=== PATIENT | female | born 1985 | race Caucasian/White ===

== ENCOUNTER 2025-03-04 07:33 | Outpatient (REF) | payer OTHER, SELFPAY ==
--- OUTSIDE RECORDS SUMMARY | 2025-03-04 07:35 | XMS_ITS ---
Author Name [facility] Organization Unknown Problems Problem Status Onset Date Problem Type Date of Resolution Source Closed traumatic dislocation acromioclavicular joint active 2023-07-07 ProblemAct ENS_AONECT Knee pain, unspecified chronicity, unspecified laterality active [facility]osis[facility] Encounters Encounter Type Encounter Reason Primary Diagnosis Location Date Ambulatory [facility] 10/28/2024 Ambulatory [place] [facility] 02/05/2024 Ambulatory Pain in unspecified knee Pain in unspecified knee [place] [facility] 02/05/2024 Ambulatory [facility] 07/07/2023 Ambulatory [facility] 07/07/2023 Ambulatory [facility] 07/07/2023 Ambulatory [facility] 07/07/2023 Ambulatory [facility] 07/07/2023 Ambulatory [facility] 10/05/2022 Ambulatory [facility] 03/31/2022 Emergency Sprain of unspecified site of unspecified knee, initial encounter [place] [employer] 12/11/2021 Care Team Organization Name Specialty Phone Email Start Date End Da te [place] [facility] 03/31/2022 10/16/2024 [place] [facility] 12/11/2021 12/11/2021
--- OUTSIDE RECORDS SUMMARY | 2025-03-04 07:35 | XMS_ITS | Encounter Summary ---
Author Organization [facility] Address [address] [place] [address] Care Team Providers Care Lead C Developer Name Role Phone Unknown Primary Care Provider [phone] Encounter Details Date Type Department Care Team (Late st Contact Info) Description 03/11/2022 Erroneous Encounter [facility] CON[facility] DEPT [address] [place] [address] Provider, MD Kunal Social History Tobacco Use Types Packs/Day Years Used Date Smoking Tobacco: Never Smokeless Tobacco: Never Comments Unknown Sex and Gender Information Value Date Recorded Sex Assigned at Not on file Legal Sex Female 3:25 PM EDT Gender Identity Not on file Sexual Orientation Not on file documented as of this encounter Plan of Treatment Not on file documented as of this encounter Visit Diagnoses Not on filedocumented in this encounter Care Teams Lead C Developer Relationship Specialty Start Date End Date Unknown Unknow Provider Address PCP - General 12/30/18 documented as of this encounter
== END 2025-03-04 07:34 | disposition home or self-care (01) ==
LOC: HO.HOSX 07:33
PROVIDERS: Visit Provider Orthopaedic Surgery
DX: Z13.89 Encounter for screening for other disorder (principal)

== ENCOUNTER 2025-03-26 08:53 | Outpatient (REF) | payer OTHER, SELFPAY ==
--- NOTE | ~2025-03-26 | XR_ITS ---
EXAMINATION: XR KNEE, RIGHT CLINICAL INFORMATION: M25.561 - Pain in right knee COMPARISON: None available. TECHNIQUE: Three views of the right knee. FINDINGS: There has been prior ACL repair. Hardware intact and well seated. No fracture, dislocation, or suspicious bone lesion. There is normal alignment. Mild to moderate degenerative arthrosis in the medial compartment. Mild changes in the patellofemoral compartment. Spurring of the lateral compartment. Mild spurring of the tibial spines. There is a small suprapatellar joint effusion. No discrete soft tissue abnormality. XR/XR knee RT 3V IMPRESSION: 1. No acute bony abnormalities of the right knee. 2. Prior ACL repair. 3. Moderate osteoarthrosis in the medial compartment and milder changes in the patellofemoral compartment. 4. Small joint effusion. Electronically signed by: Angel Rebollar MD 03/26/2025 11:07 AM EDT
--- OUTSIDE RECORDS SUMMARY | 2025-03-27 09:41 | XMS_ITS | Encounter Summary ---
Author Organization [facility] Address [address] [place] [address] Care Team Providers Care Farm Agent Name Role Phone Unknown Primary Care Provider [phone] Encounter Details Date Type Department Care Team (Late st Contact Info) Description 05/25/2020 Lab Requisition [facility] Emergency Testing Center [address] [place] [phone] Beltran Garcia PA-C [address] [place] [address] Encounter for laboratory testing for COVID-19 virus [...] (COVID-19), Qual (05/25/2020 10:59 AM EDT) Pathologist [facility] SARS CoV 2 RNA, Qual NOT DETECTED NOT DETECTED 05/27/2020 5:[address] [facility] Comment: A Not Detected (negative) test result [...] providers and patients using the following websites: https://www.Tiempy.com/home/Covid-19/HCP/QuestLDTP/ fact-sheet https://www.Tiempy.Matrix [employer] Management/home/Covid-19/Patients/QuestLDTP/ fact-sheet.html This test has been authorized by the FDA under an Emergency Use Authorization (EUA) for use by authorized laboratories. Due to the current public health emergency, [facility] is receiving a high volume of samples [...] about COVID-19 can be found at the [facility] website: www.LocalEats.[employer]/Covid19. Microbiology Nasopharyngeal swab / Unknown 05/25/2020 10:59 AM EDT 05/25/2020 11:[address] [facility] - 05/27/2020 5:00 AM EDT Performing Organization Information: Site ID: [id number] Name: [email or web address] Address: [address] [place] [address],[place] [address] Director: MORENA OLSON MD [facility] License [facility] [id number] Beltran Garcia PA-C BODY FLUIDS AND STOOLS OR DERABLES Final Result [facility] documented in this encounter Visit Diagnoses Diagnosis Encounter for laboratory testing for COVID-19 virus documented in this encounter Care Teams Farm Agent Relationship Specialty Start Date End Date Unknown Unknow Provider Address PCP - General 12/30/18 documented as of this encounter
--- OUTSIDE RECORDS SUMMARY | 2025-03-27 09:41 | XMS_ITS | Encounter Summary ---
Author Organization [facility] Address [address] [place] [address] Care Team Providers Care Teacher Adventure Education Name Role Phone Unknown Primary Care Provider [phone] Encounter Details Date Type Department Care Team (Late st Contact Info) Description 04/14/2020 Lab Requisition [place] COVID-19 Testing Trailer [address] [place] [address] Beltran Garcia PA-C [address] [place] [address] Encounter for laboratory testing for COVID-19 virus [...] DETECTED NOT DETECTED 04/15/2020 2:00 PM EDT [facility] Comment: A Not Detected (negative) [...] providers and patients using the following websites: https://www.Chameleon BioSurfaces.com/home/Covid-19/HCP/QuestIVD/fact- sheet.html https://www.Chameleon BioSurfaces.[employer]-Farm/home/Covid-19/Patients/ QuestIVD/fact-sheet.html This test has been authorized by the FDA under an Emergency Use Authorization (EUA) for use by authorized laboratories. Due to the current public health emergency, [facility] is receiving a high volume of samples [...] about COVID-19 can be found at the [facility] website: www.Leondra music.[employer]-Farm/Covid19. Microbiology Nasopharyngeal swab / Unknown 04/14/2020 12:24 PM EDT 04/14/2020 12:24 PM EDT Narrative [facility] - 04/15/2020 2:00 PM EDT Performing Organization Information: Site ID: [id number] Name: [employer] Address: [address] [place] [address],[place] [address] Director: MOREAN OLSON MD [facility] License number [id number] Beltran Garcia PA-C BODY FLUIDS AND STOOLS OR DERABLES Final Result [facility] documented in this encounter Visit Diagnoses Diagnosis Encounter for laboratory testing for COVID-19 virus documented in this encounter Care Teams Teacher Adventure Education Relationship Specialty Start Date End Date Unknown Unknow Provider Address PCP - General 12/30/18 documented as of this encounter
--- OUTSIDE RECORDS SUMMARY | 2025-03-27 09:41 | XMS_ITS | Clinical Summary ---
Author Organization [facility] Address [address] [place] [address] Care Team Providers Care Building Mover Name Role Phone Unknown Primary Care Provider [phone] Allergies No known active allergies Medications [...] Name Priority Date/Time Associated Diagnosis Comments THINPREP PAP(PSYCH RN) HPV SCR RFX HPV 16,18/45 Routine 09/24/2020 3:35 PM EST from Last 3 Months or Most Recently Relevant to Health Maintenance Results * ThinPrep Pap(Rn Cardiovascular Icu) HPV Scr Rfx HPV 16,18/45 (09/24/2020 3:35 [...] Cervix, Endocervix HPV RESULTS: HPV mRNA E6/E7 [id number] Approved: 09/28/20 Negative REF RANGE: Negative CPT Codes: 34697 ICD Codes: Z12.4 Other 09/24/2020 3:35 PM EST 09/24/2020 11:50 PM EST us Keishajose raul Dsouza [facility] AMB PATH/CYTO ORDERABLES Final Result [facility] [address] [place], [place] from Last 3 Months or Most Recently Relevant to Health Maintenance Insurance [employer] HMO/POS Care Teams Building Mover Relationship Specialty Start Date End Date Unknown Unknow Provider Address PCP - General 12/30/18
--- OUTSIDE RECORDS SUMMARY | 2025-03-27 09:41 | XMS_ITS | Encounter Summary ---
Author Organization [facility] Address [address] [place] [address] Care Team Providers Care Shipping And Receiving Supervisor Name Role Phone Unknown Primary Care Provider [phone] Encounter Details Date Type Department Care Team (Late st Contact Info) Description 03/11/2022 Erroneous Encounter [facility] CONVERSION DEPT [address] [place] [address] Provider, MD Kunal Social History Tobacco Use [...] on filedocumented in this encounter Care Teams Shipping And Receiving Supervisor Relationship Specialty Start Date End Date Unknown Unknow Provider Address PCP - General 12/30/18 documented as of this encounter
--- OUTSIDE RECORDS SUMMARY | 2025-03-27 09:41 | XMS_ITS | Encounter Summary ---
Author Organization [facility] Address [address] [place] [address] Care Team Providers Care Financial Planning Adviser Name Role Phone Unknown Primary Care Provider [phone] Encounter Details Date Type Department Care Team (Latest Contact Info) Description 08/25/2020 Lab Requisition [facility] COVID Drive Through [address] [place] [address] [address] [place] [address] Brian Aldana MD [address] [place] [address] Encounter for laboratory testing for COVID-19 virus [...] Jem Corea, Ph.D., Laboratory DirectorTests performed at [facility] [employer] Microbiology Nasopharyngeal swab / Unknown 08/25/2020 2:23 PM EST 08/25/2020 2:23 PM EST Narrative [facility] - 08/26/2020 10:27 PM EST Performed by [facility] [address] [place] [address], CLIA# [id number] and [place] License# [id number] us Brian Aldana MD MICROBIOLOGY - GENERAL ORDER AMEE Final Result [facility] documented in this encounter Visit Diagnoses Diagnosis Encounter for laboratory testing for COVID-19 virus documented in this encounter Care Teams Financial Planning Adviser Relationship Specialty Start Date End Date Unknown Unknow Provider Address PCP - General 12/30/18 documented as of this encounter
--- OUTSIDE RECORDS SUMMARY | 2025-03-27 09:41 | XMS_ITS | Encounter Summary ---
Author Organization [facility] Address [address] [place] [address] Care Team Providers Care Return Clerk Name Role Phone Unknown Primary Care Provider [phone] Encounter Details Date Type Department Care Team (Late st Contact Info) Description 05/20/2020 Lab Requisition [place] COVID-19 Testing Trailer [address] [place] [address] Beltran Garcia PA-C [address] [place] [address] Encounter for laboratory testing for COVID-19 virus [...] DETECTED NOT DETECTED 05/22/2020 12:00 PM EDT [facility] Comment: A Not Detected (negative) test [...] providers and patients using the following websites: https://www.EatingWell.com/home/Covid-19/HCP/QuestLDTP/ fact-sheet https://www.EatingWell.xCloud/home/Covid-19/Patients/QuestLDTP/ fact-sheet.html This test has been authorized by the FDA under an Emergency Use Authorization (EUA) for use by authorized laboratories. Due to the current public health emergency, [facility] is receiving a high volume of samples [...] about COVID-19 can be found at the [facility] website: www.DigiPath.xCloud/Covid19. Microbiology Nasopharyngeal swab / Unknown 05/20/2020 12:28 PM EDT 05/20/2020 12:28 PM EDT Narrative [facility] - 05/22/2020 12:00 PM EDT Performing Organization Information: Site ID: [id number] Name: [employer] Address: [address] [place] [address],[place] [address] Director: MORENA OLSON MD [facility] at [facility] number [id number] Beltran Garcia PA-C BODY FLUIDS AND STOOLS OR DERABLES Final Result Performing Organization Address City/State/[facility] Co de Phone Number [facility] documented in this encounter Visit Diagnoses Diagnosis Encounter for laboratory testing for COVID-19 virus documented in this encounter Care Teams Return Clerk Relationship Specialty Start Date End Date Unknown Unknow Provider Address PCP - General 12/30/18 documented as of this encounter
== END 2025-03-26 08:54 | disposition home or self-care (01) ==
LOC: HO.HOSX 08:53
PROVIDERS: Visit Provider Orthopaedic Surgery
DX: S83.241A Other tear of medial meniscus, current injury, right knee, initial encounter (principal); M25.561 Pain in right knee; X50.1XXA Overexertion from prolonged static or awkward postures, initial encounter; Y93.67 Activity, basketball
CPT/HCPCS: 73562

== ENCOUNTER 2025-03-26 10:49 | Outpatient (AMB) | payer OTHER, SELFPAY ==
--- NOTE | 2025-03-26 10:57 | A.OFFVIS_ITS ---
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 The patient states that she 1st injured her right knee around 2011 while playing pickup football. She underwent right knee anterior cruciate ligament repair surgery by an orthopedic surgeon in [facility]. The patient then suffered a bucket-handle tear of her meniscus. She underwent a 2nd surgery by [facility] in [place] several years ago. The patient states that she re-injured her right knee approximately 6 months ago while playing basketball. She twisted her knee and had acute onset of pain. She feels like she may have a recurrent meniscus tear. She has tried an exercise program which has aggravated her pain. She has failed the last 6 weeks of conservative treatment. 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 Physical Exam Vital Signs: BMI result Body Mass Index 28.9 Extrem Other: Right knee examination shows full range of motion when compared to her left knee, minimal crepitus with range of motion, tenderness along her medial joint line, positive Steve's test Results Reviewed Results Reviewed: X-rays of the patient's right knee show mild diffuse joint space narrowing as well as an ACL screw in the proximal tibia with no signs of loosening as well as a 2nd ACL screw in the distal femur with no signs of loosening Assessment & Plan Assessment & Plan (1) Tear of medial meniscus of right knee: Code(s): S83.241A - Other tear of medial meniscus, current injury, right knee, initial encounter Category: Medical Plan Brit presents with recurrent right knee pain and mechanical symptoms possibly due to a recurrent medial meniscus tear. Thus, I will send the patient for an MRI of her right knee for further evaluation. I will contact her by phone once the MRI results are available. She will continue with her activity modifications in the meantime. I spent 21 minutes in reviewing the patient's records and imaging studies, seeing the patient and documenting in the medical record. Orders: Orders XR knee RT 3V Today M25.561 - Pain in right knee MR knee RT wo con 03/27/25 S83.241A - Other tear of medial meniscus, current injury, right knee, initial encounter Coding Level of Care Code New Pt Level 3 (61921) Complex EM visit Add On G2211 Diagnoses Tear of medial meniscus of right knee S83.241A
[2025-03-26 11:01] VITALS: BMI 28.9
--- OUTSIDE RECORDS SUMMARY | 2025-03-26 11:42 | XMS_ITS | Encounter Summary ---
Author Organization [facility] Address [address] [place] [address] Care Team Providers Care Service Station Equipment Mechanic Name Role Phone Unknown Primary Care Provider [phone] Encounter Details Date Type Department Care Team (Late st Contact Info) Description 04/14/2020 Lab Requisition [place] COVID-19 Testing Trailer [address] [place] [address] Beltran Garcia PA-C [address] [place] [address] Encounter for laboratory testing for COVID-19 virus Social History Tobacco Use Types Packs/Day Years Used Date Smoking Tobacco: Never Smokeless Tobacco: Never Comments Unknown Sex and Gender Information Value Date Recorded Sex Assigned at Not on file Legal Sex Female 3:25 PM EDT Gender Identity Not on file Sexual Orientation Not on file COVID-19 Exposure Response Date Recorded In the last month, have you been in contact with someone who was confirmed or suspected to have Coronavirus / COVID-19? Unable to assess 04/07/2020 4:45 PM EDT documented as of this encounter Plan of Treatment Not on file documented as of this encounter Procedures Procedure Name Priority Date/Time Associated Diagnosis Comments (REPORT) SARS COV-2 RNA (COVID-19), QUAL Routine 04/14/2020 12:24 PM EDT Encounter for laboratory testing for COVID-19 virus [ICD-10-CM] documented in this encounter Results * SARS CoV-2 RNA (COVID-19), Qual (04/14/2020 12:24 PM EDT) SARS CoV 2 RNA, Qual NOT DETECTED NOT DETECTED 04/15/2020 2:00 PM EDT [facility] Comment: A Not Detected (negative) test result for this test means that SARS- CoV-2 RNA was not present in the specimen above the limit of detection. A negative result does not rule out the possibility of COVID-19 and should not be used as the sole basis for treatment or patient management decisions. If COVID-19 is still suspected, based on exposure history together with other clinical findings, re-testing should be considered in consultation with public health authorities. Laboratory test results should always be considered in the context of clinical observations and epidemiological data in making a final diagnosis and patient management decisions. Please review the Fact Sheets and FDA authorized labeling available for health care providers and patients using the following websites: https://www.Tonchidot.com/home/Covid-19/HCP/QuestIVD/fact- sheet.html https://www.[employer]/home/Covid-19/Patients/ Quest[employer]D/fact-sheet.html This test has been authorized by the FDA under an Emergency Use Authorization (EUA) for use by authorized laboratories. Due to the current public health emergency, [facility] is receiving a high volume of samples from a wide variety of swabs and media for COVID-19 testing. In order to serve patients during this public health crisis, samples from appropriate clinical sources are being tested. Negative test results derived from specimens received in non-commercially manufactured viral collection and transport media, or in media and sample collection kits not yet authorized by FDA for COVID-19 testing should be cautiously evaluated and the patient potentially subjected to extra precautions such as additional clinical monitoring, including collection of an additional specimen. Methodology: Nucleic Acid Amplification Test (NAAT) includes PCR or TMA Additional information about COVID-19 can be found at the [employer] website: www.K[employer]ik[employer]/Covid19. Microbiology Nasopharyngeal swab / Unknown 04/14/2020 12:24 PM EDT 04/14/2020 12:24 PM EDT Narrative [facility] - 04/15/2020 2:00 PM EDT Performing Organization Information: Site ID: [id number] Name: [facility] Address: [address] [place] [address],[place] [address] Director: MORENA OLSON MD [facility] at [facility] License number [id number] Beltran Garcia PA-C BODY FLUIDS AND STOOLS OR DERABLES Final Result [facility] documented in this encounter Visit Diagnoses Diagnosis Encounter for laboratory testing for COVID-19 virus documented in this encounter Care Teams Service Station Equipment Mechanic Relationship Specialty Start Date End Date Unknown Unknow Provider Address PCP - General 12/30/18 documented as of this encounter
--- OUTSIDE RECORDS SUMMARY | 2025-03-26 11:42 | XMS_ITS | Clinical Summary ---
Author Organization [facility] Address [address] [place] [address] Care Team Providers Care Back Tender Insulation Board Name Role Phone Unknown Primary Care Provider [phone] Allergies No known active allergies Medications ondansetron (ZOFRAN-ODT) 4 MG disintegrating tablet Take 1 tablet (4 mg total) by mouth 3 times daily (every 8 hours) as needed for nausea or vomiting. Place tablet on tongue to dissolve. 10 tablet 9 Active Social History Tobacco Use Types Packs/Day Years Used Date Smoking Tobacco: Never Smokeless Tobacco: Never Comments Unknown Sex and Gender Information Value Date Recorded Sex Assigned at Not on file Legal Sex Female 3:25 PM EDT Gender Identity Not on file Sexual Orientation Not on file Last Filed Vital Signs Vital Sign Reading Time Taken Comments Blood Pressure 102/76 12/11/2021 7:16 PM EDT Pulse 75 12/11/2021 7:16 PM EDT Temperature 37.1 C (98.7 F) 12/11/2021 7:16 PM EDT Respiratory Rate 18 12/11/2021 7:16 PM EDT Oxygen Saturation 97% 12/11/2021 7:16 PM EDT Inhaled Oxygen Concentration - - Weight 79.4 kg (175 lb) 02/05/2015 3:49 PM EDT Height 172.7 cm (5' 8 ) 02/05/2015 3:49 PM EDT Body Mass Index 26.61 02/05/2015 3:49 PM EDT Plan of Treatment Health Maintenance Due Date Last Done Comments Hepatitis C Virus Screening 1987 DTaP/Tdap/Td Vaccines (1 - Tdap) 2006 Hepatitis B Vaccines (1 of 3 - 19+ 3-dose series) 2006 HPV Vaccines (1 - 3-dose SCD M series) 2014 Pap Smear (Ages 21-65) 09/24/2023 09/24/2020 COVID-19 Vaccine (4 - 2023-2 5 season) 2024 05/07/2021, 08/26/2020, 08/05/2020 Influenza Vaccine 02/28/2025 06/15/2022 HIV Screening Completed 03/03/2022, 10/05/2020 Pneumococcal Vaccine: Pediatric (0-5 Years) and At-Risk Patients (6 to 49 Years) Aged Out No longer eligible b ased on patient's age to complete this topic Procedures Procedure Name Priority Date/Time Associated Diagnosis Comments THINPREP PAP(LOAN BROKER) HPV SCR RFX HPV 16,18/45 Routine 09/24/2020 3:35 PM EST from Last 3 Months or Most Recently Relevant to Health Maintenance Results * ThinPrep Pap(Horticulture Instructor) HPV Scr Rfx HPV 16,18/45 (09/24/2020 3:35 PM EST) Report Report [facility] Comment: Final Gynecological Cytology Report ThinPrep Pap Test, HPV Screen, Reflex HPV Genotype SPECIMEN ADEQUACY: SATISFACTORY FOR EVALUATION; ENDOCERVICAL/TRANSFORMATION ZONE COMPONENT ABSENT/INSUFFICIENT . INTERPRETATION: NEGATIVE FOR INTRAEPITHELIAL LESION OR MALIGNANCY. Electronically Signed: Dana Puga CT (ASCP) CLINICAL INFORMATION: LMP: NG Specimen Source: Cervix, Endocervix HPV RESULTS: HPV mRNA E6/E7 [id number] Approved: 09/28/20 Negative REF RANGE: Negative CPT Codes: 95608 ICD Codes: Z12.4 Other 09/24/2020 3:35 PM EST 09/24/2020 11:50 PM EST us Keishajose raul Dsouza [employer] SALES COUNTER MANAGER LAB AMB PATH/CYTO ORDERABLES Final Result [facility] [address] [place], [place] from Last 3 Months or Most Recently Relevant to Health Maintenance Insurance [employer] HMO/POS Care Teams Back Tender Insulation Board Relationship Specialty Start Date End Date Unknown Unknow Provider Address PCP - General 12/30/18
--- OUTSIDE RECORDS SUMMARY | 2025-03-26 11:42 | XMS_ITS | Encounter Summary ---
Author Organization [facility] Address [address] [place] [address] Care Team Providers Care Etcher Electrolytic Name Role Phone Unknown Primary Care Provider [phone] Encounter Details Date Type Department Care Team (Latest Contact Info) Description 08/25/2020 Lab Requisition [facility] COVID [address] Through [address] [place] [address] [address] [place] [address] Brian Aldana MD [address] [place] [address] Encounter for laboratory testing for COVID-19 virus [...] have Coronavirus / COVID-19? Unable to assess 08/11/2020 11:04 AM EST documented as of this encounter Plan of Treatment Not on file documented as of this encounter Procedures Procedure Name Priority Date/Time Associated Diagnosis Comments COVID-19 (SARS-COV-2) - SEMA4 LAB Routine 08/25/2020 2:23 PM EST Encounter for laboratory testing for COVID-19 virus [ICD-10-CM] documented in this encounter Results * COVID-19 (SARS-COV-2) (JANIA) (08/25/2020 2:23 PM EST) COVID-19 RT-PCR NOT-DETEC KARMA Not-Detec karma 08/26/2020 10:27 PM EST [facility] Comment:Interpretation: The viral RNA was not detected, making the COVID-19 diagnosis less likely. Clinical correlation is highly recommended.Final report signed by Jem Corea, Ph.D., Laboratory DirectorTests performed at [facility] Nasopharyngeal swab / Unknown 08/25/2020 2:23 PM EST 08/25/2020 2:23 PM EST Narrative [facility] - 08/26/2020 10:27 PM EST Performed by [facility] [address] [place] [address], CLIA# [id number] and [place] License# [id number] us Brian Aldana MD MICROBIOLOGY - GENERAL ORDER AMEE Final Result [facility] documented in this encounter Visit Diagnoses Diagnosis Encounter for laboratory testing for COVID-19 virus documented in this encounter Care Teams Etcher Electrolytic Relationship Specialty Start Date End Date Unknown Unknow Provider Address PCP - General 12/30/18 documented as of this encounter
--- OUTSIDE RECORDS SUMMARY | 2025-03-26 11:42 | XMS_ITS | Encounter Summary ---
Author Organization [facility] Address [address] [place] [address] Care Team Providers Care Decorating And Assembly Supervisor Name Role Phone Unknown Primary Care Provider [phone] Encounter Details Date Type Department Care Team (Late st Contact Info) Description 03/11/2022 Erroneous Encounter [facility] CONVERSION DEPT [address] [place] [address] Provider, MD Kunal Social History Tobacco Use [...] on filedocumented in this encounter Care Teams Decorating And Assembly Supervisor Relationship Specialty Start Date End Date Unknown Unknow Provider Address PCP - General 12/30/18 documented as of this encounter
--- OUTSIDE RECORDS SUMMARY | 2025-03-26 11:42 | XMS_ITS | Encounter Summary ---
Author Organization [facility] Address [address] [place] [address] Care Team Providers Care Mass Spec Name Role Phone Unknown Primary Care Provider [phone] Encounter Details Date Type Department Care Team (Late st Contact Info) Description 05/25/2020 Lab Requisition [facility] [address] [place] [phone] Beltran Garcia PA-C [address] [place] [address] Encounter for laboratory testing for COVID-19 virus [...] have Coronavirus / COVID-19? Unable to assess 05/13/2020 6:50 AM EDT documented as of this encounter Plan of Treatment Not on file documented as of this encounter Procedures Procedure Name Priority Date/Time Associated Diagnosis Comments (REPORT) SARS COV-2 RNA (COVID-19), QUAL Routine 05/25/2020 10:59 AM EDT Encounter for laboratory testing for COVID-19 virus [ICD-10-CM] documented in this encounter Results * SARS CoV-2 RNA (COVID-19), Qual (05/25/2020 10:59 AM EDT) Pathologist [facility] SARS CoV 2 RNA, Qual NOT DETECTED NOT DETECTED 05/27/2020 5:00 AM EDT [facility] Comment: A Not Detected (negative) test result for this test means that SARS-CoV-2 RNA was not present in the specimen [...] a final diagnosis and patient management decisions. REFERENCE RANGE: NOT DETECTED This patient specimen was tested using an FDA EUA pooling method. Negative results from pooled testing should not be treated as definitive. If the patient's clinical signs and symptoms are inconsistent with a negative result or results are necessary for patient management, then the patient should be considered for individual testing. Specimens with low viral loads may not be detected in sample pools due to the decreased sensitivity of pooled testing. Please review the Fact Sheets and FDA authorized labeling available for health care providers and patients using the following websites: https://www.[employer]Company.com/home/Covid-19/HCP/QuestLDTP/ fact-sheet https://www.[employer]/home/Covid-19/Patients/QuestLDTP/ fact-sheet.html This test has been authorized by the FDA under an Emergency Use Authorization (EUA) for use by authorized laboratories. Due to the current public health emergency, [facility] is receiving a high volume of samples [...] Methodology: Nucleic Acid Amplification Test (NAAT) includes RT-PCR or TMA Additional information about COVID-19 can be found at the [facility] website: www.[employer]/Covid19. Microbiology Nasopharyngeal swab / Unknown 05/25/2020 10:59 AM EDT 05/25/2020 11:00 AM EDT Narrative [facility] - 05/27/2020 5:00 AM EDT Performing Organization Information: Site ID: [id number] Name: [employer] Address: [address] [place] [address],[place] [address] Director: MORENA OLSON MD [facility] License number [id number] Beltran Garcia PA-C BODY FLUIDS AND STOOLS OR DERABLES Final Result [facility] documented in this encounter Visit Diagnoses Diagnosis Encounter for laboratory testing for COVID-19 virus documented in this encounter Care Teams Mass Spec Relationship Specialty Start Date End Date Unknown Unknow Provider Address PCP - General 12/30/18 documented as of this encounter
--- OUTSIDE RECORDS SUMMARY | 2025-03-26 11:42 | XMS_ITS | Encounter Summary ---
Author Organization [facility] Address [address] [place] [address] Care Team Providers Care Hot Shot Name Role Phone Unknown Primary Care Provider [phone] Encounter Details Date Type Department Care Team (Late st Contact Info) Description 05/20/2020 Lab Requisition [place] COVID-19 Testing Trailer [address] [place] [address] Beltran Garcia PA-C [address] [place] [address] Encounter for laboratory testing for COVID-19 virus [...] (REPORT) SARS COV-2 RNA (COVID-19), QUAL Routine 05/20/2020 12:28 PM EDT Encounter for laboratory testing for COVID-19 virus [ICD-10-CM] documented in this encounter Results * SARS CoV-2 RNA (COVID-19), Qual (05/20/2020 12:28 PM EDT) SARS CoV 2 RNA, Qual NOT DETECTED NOT DETECTED 05/22/2020 12:00 PM EDT [facility] Comment: A Not Detected (negative) test result [...] providers and patients using the following websites: https://www.[employer].com/home/Covid-19/HCP/QuestLDTP/ fact-sheet https://www.[employer]home/Covid-19/Patients/QuestLDTP/ fact-sheet.html This test has been authorized by the FDA under an Emergency Use Authorization (EUA) for use by authorized laboratories. Due to the current public health emergency, [facility] is receiving a high volume of samples [...] about COVID-19 can be found at the [facility] website: www.[employer]ot[employer].com.[employer])/Covid19. Microbiology Nasopharyngeal swab / Unknown 05/20/2020 12:28 PM EDT 05/20/2020 12:28 PM EDT Narrative [facility] - 05/22/2020 12:00 PM EDT Performing Organization Information: Site ID: [id number] Name: [employer] Address: [address] [place] [address],[place] [address] Director: MORENA OLSON MD [facility] at [facility] License number [id number] Beltran Garcia PA-C BODY FLUIDS AND STOOLS OR DERABLES Final Result Performing Organization Address City/State/[facility] Co de Phone Number [facility] documented in this encounter Visit Diagnoses Diagnosis Encounter for laboratory testing for COVID-19 virus documented in this encounter Care Teams Hot Shot Relationship Specialty Start Date End Date Unknown Unknow Provider Address PCP - General 12/30/18 documented as of this encounter
== END 2025-03-26 11:26 | disposition home or self-care (01) ==
LOC: HO.HOS 10:50
PROVIDERS: Visit Provider Orthopaedic Surgery
DX: S83.241A Other tear of medial meniscus, current injury, right knee, initial encounter (principal)
CPT/HCPCS: 99203

== ENCOUNTER → 2025-03-26 10:51 | Outpatient (BNV) | payer OTHER, SELFPAY | PROVIDERS: Visit Provider Radiology Diagnostic Radiology | DX: M25.461 Effusion, right knee (principal) | CPT/HCPCS: 73562 ==

== ENCOUNTER 2025-04-04 16:27 | Outpatient (REF) | payer OTHER, SELFPAY ==
--- NOTE | ~2025-04-04 | MR_ITS ---
EXAMINATION: MR KNEE WITHOUT CONTRAST, RIGHT CLINICAL INFORMATION: Injured October 2024 with pain and swelling since COMPARISON: x-ray March 26, 2025 TECHNIQUE: Multiplanar multisequence MR imaging performed through the right knee without contrast. FINDINGS: Menisci: Lateral Meniscus: Lateral meniscus is intact. Incidental note is made of a meniscal flounce. Medial Meniscus: There is a horizontal tear through the body extending into the posterior horn where the tear is oriented more longitudinally. There is a tear of the anterior horn that is vertically oriented with the small displaced meniscal flap medially. There is mild extrusion of the medial meniscal body. ACL/PCL: Postoperative changes present related to ACL reconstruction. It appears thickened with increased signal in the notch. Proximal most fibers are not clearly visualized but likely intact. There is 9 mm anterior tibial translation. PCL appears intact. Extensor mechanism: Small amount of synovial fluid is present. Scarring is present in Hoffa's fat pad related to ACL reconstruction. There is a central defect involving patellar tendon and distal patella consistent with bone and tendon harvest. MCL/LCL: ACL is intact. LCL complex is intact and unremarkable. Articular cartilage: Patellofemoral Compartment: There is irregular deep fissuring of articular cartilage in the middle third and lower third patella involving median ridge extending into the lateral facet, as well as into the medial facet measuring 20mm. Deep partial-thickness articular cartilage defect is present involving the trochlear groove with focal areas of full-thickness cartilage loss and adjacent reactive marrow signal change measuring approximately 24 mm superior to inferior mm wide Lateral Compartment: There is a deep 7 mm articular cartilage defect in central weightbearing region of the lateral tibial plateau near the inner free margin of posterior horn lateral meniscus. There is a 6 mm central osteophyte involving the posterior aspect of the lateral tibial plateau with severe narrowing of overlying articular cartilage. In the adjacent posterior weightbearing region of the lateral femoral condyle, there is a 4 x 14 mm central osteophyte with severe thinning of overlying articular cartilage. Medial Compartment: There is a focal 5 mm deep full-thickness articular cartilage defect in the posterior weightbearing region of the medial femoral condyle, near the intercondylar notch with adjacent reactive marrow signal change. Bones/Marrow: Atrophic changes are present related to ACL reconstruction. There are no marrow replacing lesions otherwise. Intraosseous ganglion or degenerative cysts are present in the posterior medial tibial plateau. Tricompartmental marginal osteophytes are present. Soft tissues: There is no mass, fluid collection, muscle edema, or fatty infiltration. MR/MR knee RT wo con IMPRESSION: Moderate osteoarthritis. There is a complex tear involving most of the medial meniscus with a small displaced meniscal flap at the junction of anterior horn and body. ACL reconstruction. Graft appears thickened with increased signal. Additionally, there is 9 mm anterior tibial translation consistent with laxity of the graft. Electronically signed by: Morris Naylor MD 04/04/2025 05:23 PM EDT
--- OUTSIDE RECORDS SUMMARY | 2025-04-04 16:33 | XMS_ITS | Encounter Summary ---
Author Organization [facility] Address [address] [place] [address] Care Team Providers Care Private Household Worker Name Role Phone Unknown Primary Care Provider [phone] Encounter Details Date Type Department Care Team (Late st Contact Info) Description 03/11/2022 Erroneous Encounter [facility] CONVERSION DEPT [address] [place] [address] Provider, MD Kunal Social History Tobacco Use [...] on filedocumented in this encounter Care Teams Private Household Worker Relationship Specialty Start Date End Date Unknown Unknow Provider Address PCP - General 12/30/18 documented as of this encounter
--- OUTSIDE RECORDS SUMMARY | 2025-04-04 16:33 | XMS_ITS | Encounter Summary ---
Author Organization [facility] Address [address] [place] [address] Care Team Providers Care Sinter Press Operator Name Role Phone Unknown Primary Care Provider [phone] Encounter Details Date Type Department Care Team (Late st Contact Info) Description 05/20/2020 Lab Requisition [place] COVID-19 Testing Trailer [address] [place] [address] Beltran Garcia PA-C [address] [place] [address] Encounter for laboratory testing for COVID-19 virus [...] DETECTED NOT DETECTED 05/22/2020 12:00 PM EDT [facility] Comment: A Not Detected (negative) test [...] providers and patients using the following websites: https://www.Mashups.com/home/Covid-19/HCP/QuestLDTP/ fact-sheet https://www.Mashups.[employer]/home/Covid-19/Patients/QuestLDTP/ fact-sheet.html This test has been authorized by the FDA under an Emergency Use Authorization (EUA) for use by authorized laboratories. Due to the current public health emergency, [facility] is receiving a high volume of samples [...] about COVID-19 can be found at the [facility] website: www.MashMango.[employer]/Covid19. Microbiology Nasopharyngeal swab / Unknown 05/20/2020 12:28 PM EDT 05/20/2020 12:28 PM EDT Narrative [facility] - 05/22/2020 12:00 PM EDT Performing Organization Information: Site ID: [id number] Name: [employer] Address: [address] [place] [address],[place] [address] Director: MORENA OLSON MD [facility] License number [id number] Beltran Garcia PA-C BODY FLUIDS AND STOOLS OR DERABLES Final Result Performing Organization Address City/State/[facility] Co de Phone Number [facility] documented in this encounter Visit Diagnoses Diagnosis Encounter for laboratory testing for COVID-19 virus documented in this encounter Care Teams Sinter Press Operator Relationship Specialty Start Date End Date Unknown Unknow Provider Address PCP - General 12/30/18 documented as of this encounter
--- OUTSIDE RECORDS SUMMARY | 2025-04-04 16:33 | XMS_ITS | Encounter Summary ---
Author Organization [facility] Address [address] [place] [address] Care Team Providers Care Bacon Slicer Name Role Phone Unknown Primary Care Provider [phone] Encounter Details Date Type Department Care Team (Late st Contact Info) Description 05/25/2020 Lab Requisition [facility] [address] [place] [phone] Beltran Garcia PA-C [address] [place] [address] Encounter for laboratory testing for COVID-19 virus [...] (COVID-19), Qual (05/25/2020 10:59 AM EDT) Pathologist [facility] SARS CoV 2 RNA, Qual NOT DETECTED NOT DETECTED 05/27/2020 5:00 AM EDT [facility] Comment: A Not Detected (negative) test [...] providers and patients using the following websites: https://www.Getyoo.com/home/Covid-19/HCP/QuestLDTP/ fact-sheet https://www.Getyoo.Squee/home/Covid-19/Patients/QuestLDTP/ fact-sheet.html This test has been authorized by the FDA under an Emergency Use Authorization (EUA) for use by authorized laboratories. Due to the current public health emergency, [facility] is receiving a high volume of samples [...] about COVID-19 can be found at the [facility] website: www.Implicit [employer] Solutions.Squee/Covid19. Microbiology Nasopharyngeal swab / Unknown 05/25/2020 10:59 AM EDT 05/25/2020 11:00 AM EDT Narrative [facility] - 05/27/2020 5:00 AM EDT Performing Organization Information: Site ID: [id number] Name: [employer] Address: [address] [place] [address],[place] [address] Director: MORENA OLSON MD [facility] number [id number] Beltran Garcia PA-C BODY FLUIDS AND STOOLS OR DERABLES Final Result [facility] documented in this encounter Visit Diagnoses Diagnosis Encounter for laboratory testing for COVID-19 virus documented in this encounter Care Teams Bacon Slicer Relationship Specialty Start Date End Date Unknown Unknow Provider Address PCP - General 12/30/18 documented as of this encounter
--- OUTSIDE RECORDS SUMMARY | 2025-04-04 16:33 | XMS_ITS | Encounter Summary ---
Author Organization [facility] Address [address] [place] [address] Care Team Providers Care Electronics Warfare Technician Name Role Phone Unknown Primary Care Provider [phone] Encounter Details Date Type Department Care Team (Latest Contact Info) Description 08/25/2020 Lab Requisition [facility] COVID Drive Through [address] [place] [address] [address] [place] [address] Brian Aldana MD [address] [place] [address] Encounter for laboratory testing for COVID-19 virus [...] Jem Corea, Ph.D., Laboratory DirectorTests performed at [facility] Microbiology Nasopharyngeal swab / Unknown 08/25/2020 2:23 PM EST 08/25/2020 2:23 PM EST Narrative [facility] C[facility]ST[facility] - 08/26/2020 10:27 PM EST Performed by [facility] [address] [place] [address], CLIA# [id number] and [place] License# [id number] us Brian Aldana MD MICROBIOLOGY - GENERAL ORDER AMEE Final Result [facility] documented in this encounter Visit Diagnoses Diagnosis Encounter for laboratory testing for COVID-19 virus documented in this encounter Care Teams Electronics Warfare Technician Relationship Specialty Start Date End Date Unknown Unknow Provider Address PCP - General 12/30/18 documented as of this encounter
--- OUTSIDE RECORDS SUMMARY | 2025-04-04 16:33 | XMS_ITS | Encounter Summary ---
Author Organization [facility] Address [address] [place] [address] Care Team Providers Care Skylights Assembler Name Role Phone Unknown Primary Care Provider [phone] Encounter Details Date Type Department Care Team (Late st Contact Info) Description 04/14/2020 Lab Requisition [place] COVID-19 Testing Trailer [address] [place] [address] Beltran Garcia PA-C [address] [place] [address] Encounter for laboratory testing for COVID-19 virus [...] DETECTED NOT DETECTED 04/15/2020 2:00 PM EDT [facility] [...] providers and patients using the following websites: https://www.[employer]oxing [employer] Ltd.com/home/Covid-19/HCP/QuestIVD/fact- sheet.html https://www.[employer] Ltd.Mobilizer, Inc./home/Covid-19/Patients/ QuestIVD/fact-sheet.html This test has been authorized by the FDA under an Emergency Use Authorization (EUA) for use by authorized laboratories. Due to the current public health emergency, [facility] is receiving a high volume of samples [...] about COVID-19 can be found at the [facility] website: www.MyCube.M[employer]il[employer], Inc./Covid19. Microbiology Nasopharyngeal swab / Unknown 04/14/2020 12:24 PM EDT 04/14/2020 12:24 PM EDT Narrative [facility] - 04/15/2020 2:00 PM EDT Performing Organization Information: Site ID: [id number] Name: [employer] Address: [address] [place] [address],[place] [address] Director: MORENA OLSON MD [facility] [id number] Beltran Garcia PA-C BODY FLUIDS AND STOOLS OR DERABLES Final Result [facility] documented in this encounter Visit Diagnoses Diagnosis Encounter for laboratory testing for COVID-19 virus documented in this encounter Care Teams Skylights Assembler Relationship Specialty Start Date End Date Unknown Unknow Provider Address PCP - General 12/30/18 documented as of this encounter
--- OUTSIDE RECORDS SUMMARY | 2025-04-04 16:33 | XMS_ITS | Clinical Summary ---
Author Organization [facility] Address [address] [place] [address] Care Team Providers Care K [employer] Principal Name Role Phone Unknown Primary Care Provider [...] Name Priority Date/Time Associated Diagnosis Comments THINPREP PAP(LEAD FIRE PROTECTION ENGINEER) HPV SCR RFX HPV 16,18/45 Routine 09/24/2020 3:35 PM EST from Last 3 Months or Most Recently Relevant to Health Maintenance Results * ThinPrep Pap(Pen Or Pencil Assembly Machine Operator) HPV Scr Rfx HPV 16,18/45 (09/24/2020 3:35 [...] Cervix, Endocervix HPV RESULTS: HPV mRNA E6/E7 [id number] Approved: 09/28/20 Negative REF RANGE: Negative CPT Codes: 91410 ICD Codes: Z12.4 Other 09/24/2020 3:35 PM EST 09/24/2020 11:50 PM EST us Keishajose raul Dsouza [facility] AMB PATH/CYTO ORDERABLES Final Result [facility] [address] [place], [place] from Last 3 Months or Most Recently Relevant to Health Maintenance Insurance [employer] HMO/POS Care Teams K [employer] School Principal Relationship Specialty Start Date End Date Unknown Unknow Provider Address PCP - General 12/30/18
== END 2025-04-04 16:28 | disposition home or self-care (01) ==
LOC: HO.MRI 16:27
PROVIDERS: Visit Provider Orthopaedic Surgery
DX: S83.241A Other tear of medial meniscus, current injury, right knee, initial encounter (principal)
CPT/HCPCS: 73721

== ENCOUNTER → 2025-04-04 16:27 | Outpatient (BNV) | payer OTHER, SELFPAY | PROVIDERS: Visit Provider Radiology Diagnostic Radiology | DX: M17.11 Unilateral primary osteoarthritis, right knee (principal) | CPT/HCPCS: 73721 ==